=== PATIENT | female | born 1980 | race Caucasian/White ===

== ENCOUNTER 2017-10-03 05:55 | Day surgery (SDC) | payer BC, OTHER ==
[2017-10-02 08:48] LABS: Hematocrit 36.1 % (33.0-51.0); Hemoglobin 11.6 g/dL (11.5-16.0); Mean Corpuscular HGB 23.8 pg (26.0-34.0); Mean Corpuscular HGB Conc 32.1 g/dL (31.5-36.5); Mean Corpuscular Volume 74 fL (80-100); Platelet Count 344 K/mm3 (150-400); RDW Coefficient Variation 16.7 % (11.7-14.2); Red Blood Cell Count 4.88 M/mm3 (3.80-5.20); White Blood Cell Count 5.64 K/mm3 (4.00-11.30)
[~2017-10-03] VITALS: Ht 165.1 cm; Wt 88.9 kg
[~2017-10-03 05:55] MED LIST: Cipro500 MG PO; DOCU100 PO; Depo-Prove400 MG/1 M; Diflucan100 MG PO; Flomax0.4 MG PO; IBUP600 PO; Norco 5-325 Ta1 EACH PO
[2017-10-04 04:13] LABS: BASOPHILS ABSOLUTE AUTO 0.02 K/mm3 (0.00-0.23); BASOPHILS PERCENT AUTO 0 % (0-2); EOSINOPHILS ABSOLUTE AUTO 0.04 K/mm3 (0.00-0.68); EOSINOPHILS PERCENT AUTO 0 % (0-6); Hematocrit 29.3 % (33.0-51.0); Hemoglobin 9.3 g/dL (11.5-16.0); IMMATURE GRAN ABSOLUTE AUTO 0.04 K/mm3 (0.00-0.10); IMMATURE GRAN PERCENT AUTO 0 % (0-1); LYMPHOCYTES ABSOLUTE AUTO 2.26 K/mm3 (0.84-5.20); LYMPHOCYTES PERCENT AUTO 21 % (21-46); MONOCYTES ABSOLUTE AUTO 0.94 K/mm3 (0.16-1.47); MONOCYTES PERCENT AUTO 9 % (4-13); Mean Corpuscular HGB 23.9 pg (26.0-34.0); Mean Corpuscular HGB Conc 31.7 g/dL (31.5-36.5); Mean Corpuscular Volume 75 fL (80-100); Mean Platelet Volume 9.5 fL (9.1-12.4); NEUTROPHILS ABSOLUTE AUTO 7.69 K/mm3 (1.96-9.15); NEUTROPHILS PERCENT AUTO 70 % (41-73); Platelet Count 303 K/mm3 (150-400); RDW Coefficient Variation 16.6 % (11.7-14.2); RDW Standard Deviation 45.2 fL (35.1-46.3); Red Blood Cell Count 3.89 M/mm3 (3.80-5.20); White Blood Cell Count 10.99 K/mm3 (4.00-11.30)
[2017-10-04] MEDS ORDERED: Percocet 5-3251 EACH PO (13:15)
[2017-10-04] MEDS ORDERED: IBUP800 PO (13:15)
[2017-10-04] MEDS ORDERED: PROM25 PO (13:16)
== END 2017-10-04 14:10 | disposition home or self-care (01) ==
LOC: ORSCMMR 05:55 → SURS 10:49
PROVIDERS: Obstetrics & Gynecology
PROC: 0UT7FZZ Resection of Bilateral Fallopian Tubes, Via Natural or Artificial Opening With Percutaneous Endoscopic Assistance (ICD-10-PCS; principal; 2017-10-03 07:30)
PROC: 0UT9FZZ Resection of Uterus, Via Natural or Artificial Opening With Percutaneous Endoscopic Assistance (ICD-10-PCS; principal; 2017-10-03 07:30)
DX: N92.1 Excessive and frequent menstruation with irregular cycle (principal); N94.6 Dysmenorrhea, unspecified; D25.9 Leiomyoma of uterus, unspecified; R10.2 Pelvic and perineal pain; D64.9 Anemia, unspecified; F17.210 Nicotine dependence, cigarettes, uncomplicated
CPT/HCPCS: 36415; 84702; 85025; 85027; 86850; 86900; 86901; 88307; J0690; J1100; J1885; J2250; J2405; J2550; J2710; J3010; J7030; J7120

== ENCOUNTER → 2019-03-04 | Outpatient (CLI) | payer BC ==
[~2019-03-04] MED LIST changes: +IBUP800 PO; +PROM25 PO; +Percocet 5-3251 EACH PO
== END | disposition home or self-care (01) ==
LOC: LAB SHORT 18:18 → LAB EV 18:18
DX: N39.0 Urinary tract infection, site not specified (principal)
CPT/HCPCS: 87077; 87086; 87186

== ENCOUNTER → 2019-06-16 | Outpatient (CLI) | payer BC | END | disposition home or self-care (01) | LOC: LAB EV 15:36 → LAB SHORT 15:36 | DX: N12 Tubulo-interstitial nephritis, not specified as acute or chronic (principal) | CPT/HCPCS: 87086 ==

== ENCOUNTER 2020-11-23 07:22 | Day surgery (SDC) | payer OTHER ==
[~2020-11-23] VITALS: Ht 165.1 cm; Wt 88.9 kg
[~2020-11-23 07:22] MED LIST changes: +FLONASE ALLERG9.9 ML; +LISI20 PO; +LORA.5 PO; +OMEP20ER PO
--- NOTE | 2020-11-23 08:14 | NUR ---
11/23/20 0814 Kailee Elizondo CALL LIGHT WITHIN REACH
--- NOTE | 2020-11-23 09:05 | NUR ---
11/23/20 0905 Simran Carrera 0.15MG EPI ADDED TO 30CC MARCAINE=MARCAINE WITH EPI 1:200,000.
== END 2020-11-23 10:13 | disposition home or self-care (01) ==
LOC: ORSCSDS 07:22
PROVIDERS: Podiatrist Foot & Ankle Surgery
PROC: 0QSP04Z Reposition Left Metatarsal with Internal Fixation Device, Open Approach (ICD-10-PCS; principal; 2020-11-23 08:30)
DX: M20.12 Hallux valgus (acquired), left foot (principal); I10 Essential (primary) hypertension; Z87.891 Personal history of nicotine dependence; Z79.899 Other long term (current) drug therapy
CPT/HCPCS: A9270; C1713; C1769; J0171; J0690; J2001; J2250; J2704; J3010; J7120

== ENCOUNTER → 2022-06-14 | Outpatient (CLI) | payer BC ==
[~2022-06-14] MED LIST changes: +BUSP5; +KRILL OIL500 MG; +VITAMIN D310 MC1; +Vitamin B-12100 MCG
== END | disposition home or self-care (01) ==
LOC: LAB 18:10 → LAB SHORT 18:10
DX: N39.0 Urinary tract infection, site not specified (principal)
CPT/HCPCS: 87077; 87086; 87186

== ENCOUNTER 2023-06-20 12:04 | Day surgery (SDC) | payer BC ==
[~2023-06-20] VITALS: Ht 167.6 cm; Wt 91.3 kg
[2023-06-20] MEDS ORDERED: HYDPAM50 PO (12:22)
[2023-06-20 15:00] VITALS: BP 143/79
--- NOTE | 2023-06-20 15:32 | NUR ---
06/20/23 1532 NILS MORA PT WC TO BATHROOM TO VOID URINE PRIOR TO DC
== END 2023-06-20 15:26 | disposition home or self-care (01) ==
LOC: ORSCSDS 12:04
PROVIDERS: Podiatrist Foot & Ankle Surgery
PROC: 0QSN04Z Reposition Right Metatarsal with Internal Fixation Device, Open Approach (ICD-10-PCS; principal; 2023-06-20 13:10)
DX: M20.11 Hallux valgus (acquired), right foot (principal); Z87.891 Personal history of nicotine dependence; F41.9 Anxiety disorder, unspecified; Z79.899 Other long term (current) drug therapy
CPT/HCPCS: C1713; C1769; J0690; J2001; J2250; J2704; J2795; J3010; J7120